=== PATIENT | male | born 1995 | race Hispanic/Latino ===

== ENCOUNTER 2018-01-28 10:04 | Emergency (ER) | payer OTHER ==
--- NOTE | 2018-01-28 10:54 | RAD REPORT ---
EXAM DESCRIPTION: CT - Facial Bones W/ Mpr - 01/28/2018 10:38 am CLINICAL HISTORY: Facial injury TECHNIQUE: Computed axial tomography of the face was obtained. Coronal and sagittal reconstruction w as performed. All CT scans are performed using dose optimization technique as appropriate and may include automated exposure control or mA/KV adjustment according to patient size. FINDINGS: A minimally displaced fracture involves the angle of the left mandible. A mildly displaced fracture involves the anterior right mandible. A TMJ dislocation is not noted. Lucencies surrounding several teeth probably represent abscesses. A mildly depressed fracture involves the posterolateral wall of the left maxillary sinus. Blood is present within the left maxillary sinus. The globes are intact. IMPRESSION: Bilateral mandibular fractures. Mildly depressed fracture of the posterolateral wall of the left maxillary sinus
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
[2018-01-28] MEDS ORDERED: CEFAZOLIN SODIUM 1 GM/VIAL ONE (11:34)
[2018-01-28] MEDS ORDERED: WATER FOR INJ,STERILE 10 ML ONE (11:34)
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
== END 2018-01-28 12:14 | disposition home or self-care (01) ==
LOC: ER 10:04
DX: S02.609A Fracture of mandible, unspecified, initial encounter for closed fracture (principal); S02.30XA Fracture of orbital floor, unspecified side, initial encounter for closed fracture; S02.19XA Other fracture of base of skull, initial encounter for closed fracture; Y04.0XXA Assault by unarmed brawl or fight, initial encounter; Y93.9 Activity, unspecified; Y92.149 Unspecified place in prison as the place of occurrence of the external cause; Z88.0 Allergy status to penicillin
CPT/HCPCS: 70450; 70486; 76377; 96372; 99285; J0690